=== PATIENT | male | born 1945 | race Caucasian/White ===

== ENCOUNTER 2019-03-30 10:55 | Observation (INO) | payer MEDICARE, OTHER, SELFPAY ==
[2019-03-30] VITALS (8 sets, daily range): BP systolic 120–162; BP diastolic 68–92; PULSE 67–82; RESP 16–18; TEMP 36.5–36.7; O2SAT 94–98; BMI 29.0
--- NOTE | 2019-03-30 11:10 | ED_ITS ---
Entered by Toya Brito, acting as scribe for Abdullahi Albright MD Mar 30, 2019 10:55 HPI - Neuro Symptoms/Deficit General: Chief Complaint: Neuro Symptoms/Deficit Stated Complaint: possible stroke Time Seen by Provider: 03/30/19 11:09 Source: patient Mode of arrival: wheelchair Limitations: physical limitation (L leg weakness) History of Present Illness: HPI Narrative: 73 yo male presents to ED with complaints of L leg weakness. He said he woke at 0530 this morning and his L leg would not work very well. He woke again at 0700 was worse. He said coughed all night long. He denies unusual back pain, stating he has chronic back pain. He can not raise his leg with his leg being straight but can with his knee bent. He has no sensation deficit. He has difficulty walking. Onset (ago): hour(s) (6) Time: 05:30 Timing confirmed by: other (patient) Location: left leg History of same: No Severity: severe Quality: weak Relieving factors: none Exacerbating factors: none Context: sudden onset On Anticoagulants: No Associated symptoms: Reports no associated symptoms; Deny chest pain, headache(s), nausea or vomiting Treatments Prior to Arrival: none Review of Systems Const: Denies: fever or chills Eyes: Denies: change in vision ENMT: Denies: throat pain or mouth pain Card: Denies: chest pain Resp: Denies: shortness of breath GI: Denies: abdominal pain, nausea, vomiting or diarrhea Musc: Denies: back pain or joint pain Skin/Breast: Denies: rash Neuro: Denies: headache or behavioral changes Psych: Denies: depression Endo: Denies: excessive urination Timbo/Lymph: Denies: easy bruising All/Imm: Denies: hives PFSH ED PFSH: Statuses (acute, chronic, etc) shown below reflect problem list status as previously entered and may not be historically accurate Social History Smoking and tobacco status: former smoker Physical Exam Const: COMMON NORMALS: no apparent distress and healthy appearing HENMT: COMMON NORMALS: normocephalic and external nose normal HEAD & SCALP: normocephalic NOSE: external nose normal and no nasal discharge (nasal dischage) Eye: COMMON NORMALS: PERRL PUPIL: Yes PERRL Neck/C-Spine: COMMON NORMALS: full ROM and no lymphadenopathy Chest: COMMONS NORMALS: inspection of chest normal Resp: COMMON NORMALS: normal respiratory effort and clear to auscultation bilaterally AUSCULTATION: clear to auscultation bilaterally Cardio: COMMON NORMALS: regular rate and regular rhythm RATE: regular rate RHYTHM: regular rhythm GI: COMMON NORMALS: soft to palpation PALPATION: Yes soft Extremity: COMMON NORMALS: normal to inspection, full ROM and normal capillary refill Psych: COMMON NORMALS: mental status grossly normal and cooperative Skin: COMMON NORMALS: no rashes or lesions noted GENERAL SKIN EXAM: no ra shes or lesions noted Course Vital Signs: Vital signs: Vital Signs Temperature 97.7 F 03/30/19 14:38 Pulse Rate 71 03/30/19 14:40 Respiratory Rate 18 03/30/19 14:40 Blood Pressure 120/68 03/30/19 14:40 Pulse Oximetry 98 03/30/19 14:40 MDM - Neuro Symptoms/Deficit MDM Narrative: Medical decision making narrative: Patient presents with left leg weakness. His weakness is resolving here and he is able to move and ambulate on that leg but does have partial weakness. CT scan shows no acute findings. He has no signs of epidural abscess or mass. I spoke to hospitalist and will admit to further observe. Patient has no back pain or urinary incontinence. Lab Data: Labs: Lab Results 03/30/19 03/30/19 03/30/19 Range/Units 11:15 11:15 11:15 WBC 4.1 (4.0-10.0) 10^3/ uL RBC 5.16 (4.1-5.3) 10^6/u L Hgb 15.0 (11.7-16.6) g/dL Hct 45.0 (42.0-52.0) % MCV 87.2 (80-94) fL MCH 29.1 (28.0-34.0) pg MCHC 33.3 (30.0-36.0) g/dL RDW 13.4 (12.1-15.1) % Plt Count 192 (130-400) 10^3/c mm MPV 10.1 (7.4-10.4) fL Neut % (Auto) 75.4 % Lymph % (Auto) 11.6 % [place] % (Auto) 10.8 % Eos % (Auto) 1.5 % Baso % (Auto) 0.5 % Neut # (Auto) 3.1 (1.8-7.7) 10^3/u L Lymph # (Auto) 0.5 L (0.8-4.8) 10^3/u L [place] # (Auto) 0.4 (0.2-0.9) 10^3/u L Eos # (Auto) 0.1 (0.0-0.8) 10^3/u L Baso # (Auto) 0.0 (0.0-0.1) 10^3/u L Nucleated RBC % (a uto) 0 % Nucleated RBCs # 0.0 /100WBC ESR 4 (0-10) mm/hr Sodium 139 (136-145) mmol/L Potassium 3.9 (3.5-5.1) mmol/L Chloride 101 (98-107) mmol/L Carbon Dioxide 30 H (22-29) mmol/L Anion Gap 11.9 (5-19) BUN 10 (8-23) mg/dL Creatinine 1.1 (0.7-1.2) mg/dL Glucose 113 H (74-106) mg/dL Calcium 9.8 (8.5-10.5) mg/dL Total Bilirubin 0.4 (0.15-1.2) mg/dL AST 16 (0-40) U/L ALT 13 (0-41) U/L Alkaline Phosphata se 86 (40-130) IU/L C-Reactive Protein 2.9 (0.0-4.9) mg/L Total Protein 7.0 (6.6-8.7) g/dL Albumin 4.6 (3.5-5.2) g/dL Globulin 2.4 (1.3-4.6) g/dL Imaging Data^: CT Head: Radiologist's impression: [address] [address] [address] Scan Report Signed Patient: Nathan Chaparro Unit #: [id number] : 1945 Age/Sex: 73 / M ADM Date: 03/30/19 Loc: ER Room/Bed: Attending Dr: Ordering Provider/Ordering MD: Abdullahi Albright MD Date of Service: 03/30/19 Procedure(s): CT head wo con* [id number] Accession Number(s): [id number] Report Number: [id number] PROCEDURE INFORMATION: Exam: CT Head Without Contrast Exam date and time: 03/30/2019 11:18 AM Age: 73 years old Clinical indication: Weakness, extremity; Patient HX: Sudden onset of left leg weakness this am, HX of bladder CA, HX of lumbar surgery TECHNIQUE: Imaging protocol: Computed tomography of the head without contrast. Total DLP: 793.63 mGy-cm Radiation optimization: All CT scans at this facility use at least one of these dose optimization techniques: automated exposure control; mA and/or kV adjustment per patient size (includes targeted exams where dose is matched to clinical indication); or iterative reconstruction. COMPARISON: MRI IAC'S w/wo* [id number] 08/06/2018 1:08 PM FINDINGS: Brain: Mild cerebral atrophy and ischemic leukoencephalopathy. Ventricles: Normal. No ventriculomegaly. Bones/joints: Unremarkable. No acute fracture. Sinuses: Visualized sinuses are unremarkable. No fluid levels. Mastoid air cells: Visualized mastoid air cells are well aerated. Soft tissues: Unremarkable. Vasculature: Severe calcified intracranial atherosclerotic vessel disease. CT/CT head wo con* [id number] IMPRESSION: No acute intracranial findings. Radiation Dose CTDIVOL = (mGy): DLP = 793.63 (mGy-cm) Dictated By: Gurinder Valladares MD Signed By: Gurinder Valladares MD Signed Date/Time: 03/30/19 1200 DD/ Other CT: Radiologist's impression: [address] [address] [address] Scan Report Signed Patient: Nathan Chaparro Unit #: [id number] : 1945 Age/Sex: 73 / M ADM Date: 03/30/19 Loc: ER Room/Bed: Attending Dr: Ordering Provider/Ordering MD: Abdullahi Albright MD Date of Service: 03/30/19 Procedure(s): CT thoracic spin wo con* [id number] Accession Number(s): [id number] Report Number: [id number] PROCEDURE INFORMATION: Exam: CT Thoracic Spine Without Contrast Exam date and time: 03/30/2019 11:18 AM Age: 73 years old Clinical indication: Patient HX: Sunnen onset of left leg weakness this am, HX of bladder CA, HX of lumbar surgery TECHNIQUE: Imaging protocol: Computed tomography images of the thoracic spine without contrast. Total DLP: 1815.96 mGy-cm Radiation optimization: All CT scans at this facility use at least one of these dose optimization techniques: automated exposure control; mA and/or kV adjustment per patient size (includes targeted exams where dose is matched to clinical indication); or iterative reconstruction. COMPARISON: No relevant prior studies available. FINDINGS: Vertebrae: Upper thoracic mild dextroscoliosis. Mild thoracic spondylosis. Discs/Spinal canal/Neural foramina: No spinal canal stenosis. Soft tissues: Unremarkable. Vasculature: Calcification of the thoracic aorta and/or great vessels consistent with atherosclerotic vessel disease. Lungs: Moderate centrilobular emphysema. 1.1 x 0.3 x 0.5 cm pleural based scar in the left upper lobe adjacent to the major fissure. No followup needed. CT/CT thoracic spin wo con* [id number] IMPRESSION: 1. Moderate centrilobular emphysema. 2. 1.1 x 0.3 x 0.5 cm pleural based scar in the left upper lobe adjacent to the major fissure. No followup needed. Radiation Dose CTDIVOL = (mGy): DLP = 1815.96 (mGy-cm) Dictated By: Gurinder Valladares MD Signed By: Gurinder Valladares MD Signed Date/Time: 03/30/19 1202 DD/ [address] [address] [address] Scan Report Signed Patient: Nathan Chaparro Unit #: [id number] : 1945 Age/Sex: 73 / M ADM Date: 03/30/19 Loc: ER Room/Bed: Attending Dr: Ordering Provider/Ordering MD: Abdullahi Albright MD Date of Service: 03/30/19 Procedure(s): CT lumbar spine wo con* [id number] Accession Number(s): [id number] Report Number: [id number] PROCEDURE INFORMATION: Exam: CT Lumbar Spine Without Contrast Exam date and time: 03/30/2019 11:18 AM Age: 73 years old Clinical indication: Prior surgery; Surgery type: Lumbar; Patient HX: Sudden onset of left leg weakness this a. M. TECHNIQUE: Imaging protocol: Computed tomography images of the lumbar spine without contrast. Total DLP: 2148.13 mGy-cm Radiation optimization: All CT scans at this facility use at least one of these dose optimization techniques: automated exposure control; mA and/or kV adjustment per patient size (includes targeted exams where dose is matched to clinical indication); or iterative reconstruction. COMPARISON: MRI Lumbar Spine w/o [id number] 01/03/2017 9:45 AM FINDINGS: Tubes, catheters and devices: Interval anterior L5-S1 surgery with radiopaque disc spacer and metallic artifact. Vertebrae: Moderate lumbar spondylosis. Discs/Spinal canal/Neural foramina: Borderline L4-L5 central spinal stenosis with borderline bilateral lateral recess stenosis. Mild right L4-L5 central spinal stenosis with borderline left L3-L4 and L4-L5 foraminal stenosis. Borderline L3-L4 central spinal stenosis with posterior disc bulge. Vasculature: Calcification of the abdominal aorta and/or iliac arteries consistent with atherosclerotic vessel disease. Soft tissues: Unremarkable. CT/CT lumbar spine wo con* [id number] IMPRESSION: 1. Interval anterior L5-S1 surgery with radiopaque disc spacer and metallic artifact. 2. Borderline L4-L5 central spinal stenosis with borderline bilateral lateral recess stenosis. 3. Mild right L4-L5 central spinal stenosis with borderline left L3-L4 and L4-L5 foraminal stenosis. 4. Borderline L3-L4 central spinal stenosis with posterior disc bulge. Radiation Dose CTDIVOL = (mGy): DLP = 2148.13 (mGy-cm) Dictated By: Gurinder Valladares MD Signed By: Gurinder Valladares MD Signed Date/Time: 03/30/19 1204 DD/ Discharge Plan Discharge Patient Disposition: Admitted As Inpatient Admit Provider: Andrew Boswell Clinical Impression: Left leg weakness Condition: Stable Interventions: ED Discharge Assessment Last Done: 03/30/19 14:40 Discharge Date/Time: 03/30/19 14:40 Coding Level of Care Code ED Satellite Technician for Chg Fwd Exam Problem Focused The documentation recorded by the scribAlisha pemberton Valerie R, accurately reflects the service I personally performed and the decisions made by me, Abdullahi Albright MD Mar 30, 2019 10:55
--- NOTE | 2019-03-30 11:13 | PC.NURSE ---
Pt states he woke up aroung 530 this morning and had left leg weakness. Thought his leg just went to sleep so he went back to sleep. Woke again at 0700 and noted the same symptoms, so decided to get checked out.
--- NOTE | 2019-03-30 11:16 | CTR_ITS ---
PROCEDURE INFORMATION: Exam: CT Thoracic Spine Without Contrast Exam date and time: 03/30/2019 11:18 AM Age: 73 years old Clinical indication: Patient HX: Sunnen onset of left leg weakness this am, HX of bladder CA, HX of lumbar surgery TECHNIQUE: Imaging protocol: Computed tomography images of the thoracic spine without contrast. Total DLP: 1815.96 mGy-cm Radiation optimization: All CT scans at this facility use at least one of these dose optimization techniques: automated exposure control; mA and/or kV adjustment per patient size (includes targeted exams where dose is matched to clinical indication); or iterative reconstruction. COMPARISON: No relevant prior studies available. FINDINGS: Vertebrae: Upper thoracic mild dextroscoliosis. Mild thoracic spondylosis. Discs/Spinal canal/Neural foramina: No spinal canal stenosis. Soft tissues: Unremarkable. Vasculature: Calcification of the thoracic aorta and/or great vessels consistent with atherosclerotic vessel disease. Lungs: Moderate centrilobular emphysema. 1.1 x 0.3 x 0.5 cm pleural based scar in the left upper lobe adjacent to the major fissure. No followup needed. CT/CT thoracic spin wo con* [id number] IMPRESSION: 1. Moderate centrilobular emphysema. 2. 1.1 x 0.3 x 0.5 cm pleural based scar in the left upper lobe adjacent to the major fissure. No followup needed. Radiation Dose CTDIVOL = (mGy): DLP = 1815.96 (mGy-cm)
--- NOTE | 2019-03-30 11:16 | CTR_ITS ---
PROCEDURE INFORMATION: Exam: CT Lumbar Spine Without Contrast Exam date and time: 03/30/2019 11:18 AM Age: 73 years old Clinical indication: Prior surgery; Surgery type: Lumbar; Patient HX: Sudden onset of left leg weakness this a. M. TECHNIQUE: Imaging protocol: Computed tomography images of the lumbar spine without contrast. Total DLP: 2148.13 mGy-cm Radiation optimization: All CT scans at this facility use at least one of these dose optimization techniques: automated exposure control; mA and/or kV adjustment per patient size (includes targeted exams where dose is matched to clinical indication); or iterative reconstruction. COMPARISON: MRI Lumbar Spine w/o [id number] 01/03/2017 9:45 AM FINDINGS: Tubes, catheters and devices: Interval anterior L5-S1 surgery with radiopaque disc spacer and metallic artifact. Vertebrae: Moderate lumbar spondylosis. Discs/Spinal canal/Neural foramina: Borderline L4-L5 central spinal stenosis with borderline bilateral lateral recess stenosis. Mild right L4-L5 central spinal stenosis with borderline left L3-L4 and L4-L5 foraminal stenosis. Borderline L3-L4 central spinal stenosis with posterior disc bulge. Vasculature: Calcification of the abdominal aorta and/or iliac arteries consistent with atherosclerotic vessel disease. Soft tissues: Unremarkable. CT/CT lumbar spine wo con* [id number] IMPRESSION: 1. Interval anterior L5-S1 surgery with radiopaque disc spacer and metallic artifact. 2. Borderline L4-L5 central spinal stenosis with borderline bilateral lateral recess stenosis. 3. Mild right L4-L5 central spinal stenosis with borderline left L3-L4 and L4-L5 foraminal stenosis. 4. Borderline L3-L4 central spinal stenosis with posterior disc bulge. Radiation Dose CTDIVOL = (mGy): DLP = 2148.13 (mGy-cm)
--- NOTE | 2019-03-30 11:16 | CTR_ITS ---
PROCEDURE INFORMATION: Exam: CT Head Without Contrast Exam date and time: 03/30/2019 11:18 AM Age: 73 years old Clinical indication: Weakness, extremity; Patient HX: Sudden onset of left leg weakness this am, HX of bladder CA, HX of lumbar surgery TECHNIQUE: Imaging protocol: Computed tomography of the head without contrast. Total DLP: 793.63 mGy-cm Radiation optimization: All CT scans at this facility use at least one of these dose optimization techniques: automated exposure control; mA and/or kV adjustment per patient size (includes targeted exams where dose is matched to clinical indication); or iterative reconstruction. COMPARISON: MRI IAC'S w/wo* [id number] 08/06/2018 1:08 PM FINDINGS: Brain: Mild cerebral atrophy and ischemic leukoencephalopathy. Ventricles: Normal. No ventriculomegaly. Bones/joints: Unremarkable. No acute fracture. Sinuses: Visualized sinuses are unremarkable. No fluid levels. Mastoid air cells: Visualized mastoid air cells are well aerated. Soft tissues: Unremarkable. Vasculature: Severe calcified intracranial atherosclerotic vessel disease. CT/CT head wo con* [id number] IMPRESSION: No acute intracranial findings. Radiation Dose CTDIVOL = (mGy): DLP = 793.63 (mGy-cm)
[2019-03-30 11:26] LABS: Basophils % 0.5 %; Eosinophils # 0.1 10^3/uL (0.0-0.8); Eosinophils % 1.5 %; Lymphocytes # 0.5 10^3/uL (0.8-4.8); Lymphocytes % 11.6 %; Mean Corpuscular HGB Conc 33.3 g/dL (30.0-36.0); Mean Corpuscular Hemoglobin 29.1 pg (28.0-34.0); Mean Corpuscular Volume 87.2 fL (80-94); Mean Platelet Volume 10.1 fL (7.4-10.4); Monocytes # 0.4 10^3/uL (0.2-0.9); Monocytes % 10.8 %; Neutrophils # 3.1 10^3/uL (1.8-7.7); Neutrophils % 75.4 %; Nucleated Red Blood Cells % 0 %; Platelet Count 192 10^3/cmm (130-400); Red Blood Count 5.16 10^6/uL (4.1-5.3); Red Cell Distribution Width 13.4 % (12.1-15.1); White Blood Count 4.1 10^3/uL (4.0-10.0)
[2019-03-30 11:39] LABS: Alanine Aminotransferase 13 U/L (0-41); Albumin Level 4.6 g/dL (3.5-5.2); Alkaline Phosphatase 86 IU/L (40-130); Anion Gap 11.9 (5-19); Aspartate Amino Transferase 16 U/L (0-40); Blood Urea Nitrogen 10 mg/dL (8-23); C Reactive Protein 2.9 mg/L (0.0-4.9); Calcium 9.8 mg/dL (8.5-10.5); Carbon Dioxide 30 mmol/L (22-29); Chloride 101 mmol/L (98-107); Creatinine Clr Calc Pharmacy 66.1229; Globulin 2.4 g/dL (1.3-4.6); Glucose 113 mg/dL (74-106); Potassium 3.9 mmol/L (3.5-5.1); Sodium 139 mmol/L (136-145); Total Bilirubin 0.4 mg/dL (0.15-1.2)
[2019-03-30 12:27] LABS: Erythrocyte Sedimentation Rate 4 mm/hr (0-10)
[2019-03-30] MEDS: dexamethasone 10 mg/mL INJ IVP (12:27)
--- NOTE | 2019-03-30 15:13 | PM.HP ---
Providers/Chief Complaint Admitting Physician: Andrew Boswell Primary Care Provider: Bethel Rodriguez DO Chief Complaint: LEFT LEG WEAKNESS History of Present Illness Nathan Chaparro is a 73 year old male with history of degenerative disc disease, with history of discectomy, fusion of lumbar spine 2 years ago done in [place] by Dr. Bush, urinary bladder cancer, other history including chronic/recurrent ear infections, seasonal allergies was in his usual state of health apart from nonproductive cough overnight, this morning productive of small amount of sputum, woke up in the morning and noticed difficulty getting up and walking due to left leg weakness of sudden onset. He denies any recent fall, lifting heavy objects, or worsening of his usual lower back pain. He denies saddle anesthesia, bowel or bladder incontinence. Denies any recent fever or rash. He denies any other symptoms that may suggest focal neurological deficit, with out any loss of sensation, weakness in other areas, facial droop, difficulty speaking, or vision changes. CT of the head was obtained in ER and was without acute intracranial findings. CT thoracic and lumbar spine were obtained as well. Moderate centrilobular emphysema was seen on CT thoracic spine. 1.1 x 0.3 x 0.5 cm pleural-based scar in the left upper lobe was noted incidentally. Lumbar spine CT with L5-S1 surgery with disc spacer noted, borderline L4-5 central spinal stenosis with borderline bilateral lateral recess stenosis. Mild right L4-5 central spinal stenosis with borderline left L3-4 and L4-5 foraminal stenosis. Borderline L3-4 central spinal stenosis with posterior disc bulge. He received a dose of 10 mg Decadron. He reports that his symptoms have been improving, with left lower extremity regaining strength, with him being able to now elevated off the bed whereas he previously could not. He reports going golfing about a week ago last time. He says that he goes pretty often. Review of Systems Const: Denies: fever, chills, body aches or malaise Eyes: Denies: change in vision or eye redness ENMT: Denies: throat pain, oral sores/lesions or ear pain Card: Denies: chest pain, edema, pre-syncope or shortness of breath on exertion Resp: Reports: non-productive cough (Bothersome nonproductive cough overnight.); Denies: shortness of breath, productive cough, change in phlegm color or coughing up blood GI: Denies: abdominal pain, nausea, vomiting, diarrhea, constipation, blood in stool or black tarry stool : Denies: flank pain, difficulty urinating, urinary frequency or blood in urine Musc: Denies: back pain, joint swelling or redness Skin/Breast: Denies: rash, sores or new lesion Neuro: Reports: weakness in extremities (Left lower extremity), difficulty walking and other (Reports sometimes getting burning pain in his right sole while wearing golfing shoes.); Denies: headache, numbness in extremities, dizziness, confusion or seizure-like activity Endo: Denies: excessive urination or excessive thirst Timbo/Lymph: Denies: easy bleeding or purpura All/Imm: Denies: hives, throat swelling or tongue swelling Medications/Allergies Home Medications Medication Instructions Recorded Confirmed Last Taken Type cetirizine 10 mg PO DAILY 03/30/19 03/30/19 03/30/19 History hydrocodone-acetaminophen 1 tab PO Q6H PRN 03/30/19 03/30/19 03/30/19 History meloxicam 7.5 mg PO DAILY 03/30/19 03/30/19 03/30/19 History Allergies Allergy/AdvReac Type Severity Reaction Status Date / Time Penicillins Allergy ADR-Faintin Verified 03/30/19 11:10 g PFSH Acute PFSH: Statuses (acute, chronic, etc) shown below reflect problem list status as previously entered and may not be historically accurate Medical History (Updated 03/30/19 @ 16:01 by Andrew Boswell MD) Degenerative disc disease (Acute) Recurrent otitis media (Acute) Seasonal allergies (Acute) Urinary bladder cancer (Acute) Surgical History Hx of hernia repair (Acute) Hx of knee surgery (Acute) Hx of lumbosacral spine surgery (Acute) Family History Father Colon cancer Mother Hypertension Social History (Updated 03/30/19 @ 15:54 by Andrew Boswell MD) Smoking and tobacco status: former smoker Quit status (tobacco): has quit using tobacco Year quit tobacco: 30 years ago Alcohol intake: current Alcohol intake frequency: holidays/special occasions only Substance/Drug Use: never Lives independently: Yes Household members: spouse Marital status: Vitals/I&O/Wt Last Vital Signs Temp 97.7 F 03/30/19 14:38 Pulse 71 03/30/19 14:40 Resp 18 03/30/19 14:40 BP 120/68 03/30/19 14:40 Pulse Ox 98 03/30/19 14:40 Weight last 48 hrs Weight 89.358 kg Physical Exam Const: COMMON NORMALS: no apparent distress and oriented x3 HENMT: COMMON NORMALS: oropharynx normal Neck/C-Spine: COMMON NORMALS: no JVD Resp: COMMON NORMALS: normal respiratory effort and clear to auscultation bilaterally AUSCULTATION: clear to auscultation bilaterally Cardio: COMMON NORMALS: no JVD, regular rhythm, S1 normal heart sound, S2 normal heart sound and no murmurs RHYTHM: regular rhythm HEART SOUNDS: S1 normal and S2 normal GI: COMMON NORMALS: normal to inspection, nondistended, normoactive bowel sounds, soft to palpation and non-tender PALPATION: Yes soft Extremity: COMMON NORMALS: no joint enlargement and no pedal edema NARRATIVE EXTREMITY EXAM: Sensation intact, weakness of left lower extremity, although now is able to lift it off the bed, which says he cannot do earlier. Neuro: COMMON NORMALS: oriented x3 and no sensory deficits noted COORDINATION/BALANCE: hssurx-yw-zaxy test normal SPEECH: speech normal OTHER: Visual vargas full to confrontation. No dysarthria, aphasia. No facial droop. No issues with tracking. Coordination. No pronator drift upper or right lower extremity. Left lower extremity weak, although power appears to be improving to 3/5. No sensory deficits. No neglect. Skin: COMMON NORMALS: no rashes or lesions noted GENERAL SKIN EXAM: no rashes or lesions noted Data : 03/30/19 11:15 03/30/19 11:15 A&P Assessment and plan (1) Left leg weakness: Unclear timing of onset of left lower extremity weakness. Etiology at this time difficult to determine. Does have some degenerative changes noted on CT lumbar spine, most of which are borderline, without signs of cord compression clinically. His symptoms are improving. He was started on Solu-Medrol in ER. No other focal abnormalities to suggest CVA. CT head was unremarkable. At this time CVA likely what is thought to be low. We will start him on aspirin, check lipid profile, A1c. Monitor blood pressures. Monitor on telemetry. Will order an MRI lumbar spine. Discussed with patient and his that we do not have a neurosurgeon at this time. For now we will continue steroid. Discussed his condition and plan with his neurologist Dr. Bush in [facility] who agrees with observation, assessment by MRI, steroids for now, with additional plan depending on his condition with either outpatient follow-up, or transfer in case of worsening. He is afebrile, without leukocytosis, tachycardia or other signs of acute infection, and suspicion for infection at this time is low. ESR and CRP are normal. With asymmetric involvement, no signs of autonomic dysfunction, at this time suspicion for AIDP is low. Will monitor for any changes in symptoms which may indicate need for additional assessment which would necessitate transfer. We will request assessment by PT. Status: Acute Code(s): R29.898 - Other symptoms and signs involving the musculoskeletal system (2) Nonproductive cough: Will assess with chest x-ray. Rapid flu. Suspected acute bronchitis. Emphysema noted incidentally on CT thoracic spine. Will add albuterol as needed. He denies history of COPD. May benefit from PFT at some point. Status: Acute Code(s): R05 - Cough Attestations Medical Necessity Statement*: Place in observation. Coding Level of Care Code Acute Marketing Strategy Manager for g Fwd Diagnoses Left leg weakness R29.898 Nonproductive cough R05
--- NOTE | 2019-03-30 15:32 | MRR_ITS ---
PROCEDURE INFORMATION: Exam: MR Lumbar Spine Without Contrast. Exam date and time: 03/30/2019 10:00 AM Age: 73 years old Clinical indication: Pain; Other: Lle weakness; Prior surgery; Surgery date: 6+ months; Surgery type: Back; Patient HX: Lt leg weakness since 6 am yest/ HX bladder CA; Additional info: New lle weakness TECHNIQUE: Imaging protocol: Multiplanar magnetic resonance images of the lumbar spine without intravenous contrast. COMPARISON: MRI Lumbar Spine w/o [id number] 01/03/2017 9:45 AM FINDINGS: Vertebrae: Vertebral body heights normal. L3 and L4 vertebral hemangiomas. Vertebral body marrow signal is otherwise unremarkable. No evidence of marrow infiltrative process osseous metastatic disease. Spinal cord: Conus terminates at T12-L1 and appears normal in signal intensity without intrinsic or extrinsic lesion. L1-L2: There is no significant disc bulge. There is no significant spinal stenosis. There is no significant neural foraminal narrowing. No interval change. L2-L3: There is disc desiccation at L2-L3 and L5 S1. There is generalized disc bulge, mild thickening of ligamentum flavum, and facet degeneration. There is no significant spinal stenosis. There is mild bilateral neural foraminal narrowing. No interval change. L3-L4: There is generalized disc bulge. There is mild thickening of ligamentum flavum and facet degeneration. There is no significant spinal stenosis. There is mild and unchanged right and increased and moderate left subarticular recesses narrowing. There is stable mild right and increased and moderate to severe left neural foraminal narrowing. The increased neural foraminal narrowing is due to increased bulging/protrusion into the neural foramen. L4-L5: There is generalized disc bulge. There is thickening of ligamentum flavum and facet degeneration. There is no significant spinal stenosis. There is mild bilateral subarticular recess narrowing. There is mild to moderate right slightly greater than left neural foraminal narrowing. No significant interval change. L5-S1: Again seen is mild grade 1 anterolisthesis. There is new interbody and anterior plates or effusion. There is generalized disc bulge. There is no significant facet degeneration. There is no significant spinal stenosis. There is no significant neural foraminal narrowing. Bladder: There is nonspecific mild bladder wall thickening. Soft tissues: Unremarkable. MR/MR lumbar spine wo con* [id number] IMPRESSION: 1. Degenerative changes are described above. L3-L4 shows increased and moderate to severe left neural foraminal narrowing due to increasing rim of disc bulging/protrusion. Other findings as described are stable. 2. New interbody and anterior plates fusion L5-S1. 3. No evidence of osseous metastatic disease.
--- NOTE | 2019-03-30 16:01 | XRR_ITS ---
PROCEDURE INFORMATION: Exam: XR Chest, 1 View Exam date and time: 03/30/2019 4:02 PM Age: 73 years old Clinical indication: Patient HX: Cough, HX of bladder CA, ex smoker TECHNIQUE: Imaging protocol: XR of the chest Views: 1 view. COMPARISON: [facility] Chest 2 views 07/06/2016 2:16 PM FINDINGS: Lungs: Coarsened interstitial markings consistent with emphysema. No consolidation. Pleural space: Unremarkable. No evidence of pleural effusion or pneumothorax. Heart/Mediastinum: Unremarkable. No cardiomegaly. Bones/joints: Unremarkable. XR/XR chest 1V portable [id number] IMPRESSION: No acute findings.
[2019-03-30] MEDS: aspirin 81 mg EC Tablet 162 MG PO (16:15)
[2019-03-30] MEDS: HYDROcodone-acetaminophen 10-325 mg Tablet 1 TAB PO (16:19)
[2019-03-30 16:48] LABS: Chol HDL Ratio 4.06 mg/dL (1.0-5.00); Cholesterol 219 mg/dL (0-200); HDL Cholesterol 54 mg/dL (60-100); LDL Cholesterol Calculated 137 mg/dL (50-129); LDL HDL Ratio 2.54 RATIO (0.00-3.22); Triglycerides 142 mg/dL (0-150)
[2019-03-30 17:15] LABS: Estmated Average Glucose 105; Hemoglobin A1C 5.3 % (4.0-6.0)
[2019-03-30 17:31] LABS: Influenza A by IFA Negative (Negative); Influenza B by IFA Negative (Negative)
[2019-03-30] MEDS: heparin 5,000 unit/mL INJ 1 mL 5000 UNIT SUBCUT (19:33)
[2019-03-31] MEDS: heparin 5,000 unit/mL INJ 1 mL 5000 UNIT SUBCUT ×2 (02:16→12:02)
[2019-03-31 05:55] VITALS: BP 124/72; PULSE 77; RESP 18; TEMP 36.9; O2SAT 95
[2019-03-31 07:45] VITALS: PULSE 62; RESP 16; O2SAT 95
[2019-03-31 08:00] VITALS: BP 128/83; PULSE 82; RESP 20; TEMP 37; O2SAT 96
[2019-03-31] MEDS: meloxicam 7.5 mg tablet PO (08:30)
[2019-03-31] MEDS: cetirizine 10 mg Tablet PO (08:30)
[2019-03-31] MEDS: aspirin 81 mg EC Tablet 162 MG PO (08:30)
[2019-03-31] MEDS: HYDROcodone-acetaminophen 10-325 mg Tablet 1 TAB PO (08:30)
[2019-03-31 11:54] VITALS: BP 128/88; PULSE 66; RESP 20; TEMP 36.9; O2SAT 94
--- NOTE | 2019-03-31 12:07 | PC.CHAP ---
Pastoral Care Encounter/Spiritual Assessment Type of Contact [] Declined adjuster piano action visit [] Patient/Family/Request visit [] Outpatient visit [] Follow-up visit [] Physician referral [] Code/Alert [] Routine visit [] Staff referral [] Actively dying [] Patient sleeping [] Family support [] [] Out of room [] Palliative care [] [] Receiving care in room [] Pre-surgical visit [] Trauma [] Long length of stay [] ICU visit [] Other: Relational/Emotional Strength [x] Patient feels connected with others/family/visitors/staff [] Distress [] Loneliness/isolation [] Abandonment Spirituality of Patient [x] Person of Jackie [] Attends Uatsdin of their Jackie [x] Believes in Prayer [] Reads Bible or Yazdanism materials [] There are Spiritual issues to be addressed School Commissioner Interventions [x] Prayer [x] Active listening [x] Non-anxious presence [x] Spiritual/emotional support [] Crisis/trauma care [] Spiritual counseling [] Bereavement support [] Provided bereavement packet [] Provided Bible/devotional materials [] Provided toy/stuffed animal, coloring book to patient or family member [x] Completed spiritual assessment [] Provided Communion [] Anointing/[place] [] Salvation [] Other: Impact on Illness or Injury [] Angry [] Fearful [] Anxious [] Often cries [] Exhaustion [] Unable to work [] Unable to attend scientology [] Unable to walk/stand [] Unable to read [] Unable to drive [] Unable to eat/drink [] Unable to sleep [] Unable to be with family [] Other: Summary School Commissioner prayed with Patient and family member. Time spent with patient 5 minutes.
[2019-03-31 16:11] VITALS: BP 128/88; PULSE 66; RESP 20; TEMP 36.9; O2SAT 94
--- NOTE | 2019-03-31 16:30 | PM.DCS ---
Discharge Providers Date of Admission: 03/30/19 14:06 Date of Discharge: 03/31/19 Attending Provider at Admission: Andrew Boswell Attending Provider at Discharge: Andrew Boswell Primary Care Provider: Bethel Rodriguez DO Diagnoses at Discharge Discharge Diagnosis (1) Left leg weakness: Status: Acute (2) Nonproductive cough: Status: Acute Reason for Visit Reason for Visit: Reason For Visit: LEFT LEG WEAKNESS Hospital Course Hospital Course: Mr. Chaparro is a pleasant 73-year-old gentleman with history of degenerative disc disease, status post anterior fusion of L5-S1 2 years ago, as well as urinary bladder cancer previously in remission, currently under observation by his urologist with plan for reassessment in June due to suspicious lesion, chronic/recurrent ear infections following with ENT was placed in observation after waking up in the morning on 03/30 with difficulty walking due to weakness of left lower extremity. He says prior to that had been in his regular state of health, golfing fairly regularly, most recently the week prior. He did report being bothered by significant cough for most of the night before presentation. There were no other focal neurologic abnormalities. He was assessed with CT of the head which was unremarkable. CT thoracic lumbar spine were assessed, with finding of as well. Lumbar spine CT with L5-S1 surgery with disc spacer noted, borderline L4-5 central spinal stenosis with borderline bilateral lateral recess stenosis. Mild right L4-5 central spinal stenosis with borderline left L3-4 and L4-5 foraminal stenosis. Borderline L3-4 central spinal stenosis with posterior disc bulge. Moderate centrilobular emphysema was seen on CT thoracic spine. 1.1 x 0.3 x 0.5 cm pleural-based scar in the left upper lobe was noted incidentally. He reported chronic lower back pain. In ER he received 10 mg of Decadron. His symptoms were improving, and he was regaining strength, able to lift his leg up off the bed which she could not do previously. Suspicion for CVA was low. He is otherwise in good health, although was assessed for risk factors, and discussed with him recommendation for moderate to high intensity statin which is started. His blood pressures were at goal. A1c is normal. Due to previous history of degenerative disc changes, CT findings, lower extremity weakness considered secondary to lumbosacral radiculopathy with compression of large fibers. He did not have symptoms of saddle anesthesia, bowel or bladder control dysfunction, or other symptoms of acute cord compression. He was observed overnight, continued on prednisone, with continued improvement in his symptoms. His presentation was discussed with his neurosurgeon who will see him in office. Per recommendation MRI lumbar spine was performed with finding of degenerative changes including L3-4 increased and moderate to severe left neuroforaminal narrowing due to increased rim of disc bulging/protrusion. He will complete a prednisone taper. He should follow-up with his neurosurgeon, and until then discussed with him to hold off on further golf sessions to which he verbalized understanding. Given his symptoms are most likely related to his degenerative lower back disease no further evaluation for CVA has been ordered, however, he is continued on empiric aspirin. Please consider additional investigation and referral as needed depending on his further clinical progress. Continue to optimize risk factors of cardiovascular disease. Physical Exam Const: COMMON NORMALS: no apparent distress and oriented x3 HENMT: COMMON NORMALS: oropharynx normal Neck/C-Spine: COMMON NORMALS: no JVD Resp: COMMON NORMALS: normal respiratory effort and clear to auscultation bilaterally AUSCULTATION: clear to auscultation bilaterally Cardio: COMMON NORMALS: no JVD, regular rhythm, S1 normal heart sound, S2 normal heart sound and no murmurs RHYTHM: regular rhythm HEART SOUNDS: S1 normal and S2 normal GI: COMMON NORMALS: normal to inspection, nondistended, normoactive bowel sounds, soft to palpation and non-tender PALPATION: Yes soft Extremity: COMMON NORMALS: no joint enlargement and no pedal edema NARRATIVE EXTREMITY EXAM: Sensation intact, weakness of left lower extremity, although with continuing improvement in strength, today ambulating better with a cane. Power 3+/5 left lower extremity. 5/5 right lower extremity. Neuro: COMMON NORMALS: oriented x3 and no sensory deficits noted COORDINATION/BALANCE: [id number] test normal SPEECH: speech normal COORDINATION: [id number] test normal OTHER: Visual vargas full to confrontation. No dysarthria, aphasia. No facial droop. No issues with tracking. Coordination. No pronator drift upper or right lower extremity. Left lower extremity weak, although power appears to be improving to 3+/5. No sensory deficits. No neglect. Skin: COMMON NORMALS: no rashes or lesions noted GENERAL SKIN EXAM: no rashes or lesions noted Discharge Data Data Completed and Pending: Completed Studies During Hospitalization Category Date Time Status CT head wo con* 7 [id number] Urgent Cat Scan 03/30/19 11:[address] lumbar spine w o con* [id number] Urgen t Cat Scan 03/30/19 11:[address] thoracic spin wo con* [id number] Urge nt Cat Scan 03/30/19 11:16 Completed XR chest 1V main ble [id number] Routine Exams 03/30/19 16:01 Completed MR lumbar spine w o con* [id number] Routi ne MRI 03/30/19 15:32 Completed Labs from last 24 hours 03/30/19 03/30/19 03/30/19 16:53 11:15 11:15 Estimat Average Gl ucose 105 Hemoglobin A1c 5.3 Triglycerides 142 Cholesterol 219 H LDL Cholesterol, C alc 137 H HDL Cholesterol 54 L LDL/HDL Ratio 2.54 Cholesterol/HDL Ra tonny 4.06 Influenza Type A A g Negative POC Influenza B Ag Negative Vitals: Last Vital Signs Temp 98.5 F 03/31/19 16:11 Pulse 66 03/31/19 16:11 Resp 20 H 03/31/19 16:11 BP 128/88 03/31/19 16:11 Pulse Ox 94 03/31/19 16:11 Discharge Plan Discharge Patient Disposition: Home, Self-Care Condition: Stable Prescriptions: New atorvastatin 40 mg Tablet 40 mg PO BEDTIME Qty: 30 RF: 0 prednisone 20 mg tablet 20 mg PO DAILY 12 Days Qty: 20 RF: 0 aspirin 81 mg tablet,delayed release (DR/EC) 81 mg PO DAILY Qty: 30 RF: 0 Continued cetirizine 10 mg Tablet 10 mg PO DAILY RF: 0 hydrocodone-acetaminophen 10-325 mg tablet 1 tab PO Q6H PRN (Reason: Pain) RF: 0 meloxicam 7.5 mg tablet 7.5 mg PO DAILY RF: 0 Discharge Orders: Discharge Order (Routine); Ordered 03/31/19 Ordered By: Andrew Boswell Referrals: Bethel Bush [Other] - 4-7 days (Acute leg weakness) Bethel Rodriguez DO [Primary Care Provider] - 4-7 days (Please call Nathaniel Sorto on Monday and make an appointment with Dr. Rodriguez and be seen in the next 4 to 7 days.) Discharge Diet: Low Cholesterol Discharge Activity: As per PT/OT instructions Patient Instructions: Prednisone (By mouth), Aspirin (By mouth), Atorvastatin (By mouth), Weakness (GEN), Degenerative Disc Disease (DC) Activity Restrictions/Additional Instructions: Maintain fall precautions. Avoid playing golf until you can be reassessed by your neurosurgeon. In case of worsening of weakness, appearance of any other symptoms including loss of bowel or bladder control, loss of sensation, weakness in other areas, difficulty speaking, changes in vision, or any other abnormalities seek medical attention without delay. Discharge Date/Time: 03/31/19 16:10 Discharge Attestations Time Spent in Discharge Care*: greater than 30 min Quality Metrics Clinical Quality Measures During this hospital stay, did patient experience: None Coding Level of Care Code Acute Sexual Assault Counselor for Chg Fwd Diagnoses Left leg weakness R29.898 Nonproductive cough R05
== END 2019-03-31 16:10 | disposition home or self-care (01) ==
LOC: ER 11:11 → MEDSURG 14:07
PROVIDERS: Admitting Provider Internal Medicine; Emergency Provider Emergency Medicine; Family Provider Internal Medicine; PCP Internal Medicine; Visit Provider Internal Medicine
DX: M62.81 Muscle weakness (generalized) (principal); R05 Cough; Z98.1 Arthrodesis status; Z85.51 Personal history of malignant neoplasm of bladder; Z80.0 Family history of malignant neoplasm of digestive organs; Z87.891 Personal history of nicotine dependence; Z79.891 Long term (current) use of opiate analgesic
CPT/HCPCS: 12345; 70450; 71045; 72128; 72131; 72148; 80053; 80061; 83036; 85025; 85651; 86140; 87804; 96372; 96374; 99282; 99285; G0378; J1100; J1644

== ENCOUNTER → 2019-07-04 11:20 | Outpatient (BNVA) | payer MEDICARE, OTHER, SELFPAY | PROVIDERS: Family Provider Internal Medicine; PCP Internal Medicine; Visit Provider Urology | DX: C67.9 Malignant neoplasm of bladder, unspecified (principal); C67.4 Malignant neoplasm of posterior wall of bladder | CPT/HCPCS: 81001 ==

== ENCOUNTER 2019-07-10 14:47 | Outpatient (CLI) | payer MEDICARE, OTHER, SELFPAY ==
--- NOTE | 2019-07-10 15:28 | MR_ITS ---
WS: [id number] MRI RIGHT SHOULDER HISTORY: INTERNAL DERANGEMENT OF RIGHT SHOULDER COMPARISON: None available. TECHNIQUE: Multiplanar sequences of the shoulder joint are submitted. Marked AC joint hypertrophy. Fluid in the acromioclavicular ligament with osteophytes and hypertrophi c bone formation. Encroachment and impingement upon the distal supraspinatus muscle. There is an kirit tional 5 mm osteophyte along the undersurface of the distal acromion. There is mild narrowing of the acromiohumeral distance and AC joint impingement upon the supraspinatus muscle and tendon. Moderate a mount of fluid in the subacromial and subdeltoid bursa. Insertion site tear of the anterior most supraspinatus tendon. There is no retraction of the tendon. No muscle atrophy or edema. Subscapularis tendon is intact. Loculated fluid following the anterior sue bscapularis muscle and tendon. Continuous with the subacromial and subdeltoid fluid. Subchondral cystic changes in the humeral head at the greater tuberosity. There is mild narrowing of the glenohumeral joint. A few cystic changes in the glenoid. There is a small amount of increased sig nal inserted into the base of the anterior labrum. This is not a full-thickness tear. Biceps tendon r emains in normal position. Small cystic nodule is lobulated adjacent to the posterior labrum. This is typically associated with a labral tear. MR/MR shoulder RT wo con* [id number] IMPRESSION: 1. Small insertion site tear anterior supraspinatus tendon. 2. Moderate to severe AC joint arthropathy with encroachment upon the anterior supraspinatus muscle. 3. Moderate amount of fluid in the subacromial and subdeltoid bursa with fluid extending along the subscapularis muscle and tendon. 4. Partial tear anterior labrum. Additional perilabral cyst posteriorly. These are typically associated with a labral tear. 5. Distal inferior 5 mm acromial osteophyte causing mild narrowing of the acro miohumeral distance and impingement.
== END 2019-07-10 14:48 | disposition home or self-care (01) ==
LOC: RADWPI 14:52
PROVIDERS: Family Provider Internal Medicine; PCP Internal Medicine; Visit Provider Internal Medicine
DX: M24.811 Other specific joint derangements of right shoulder, not elsewhere classified (principal); M75.101 Unspecified rotator cuff tear or rupture of right shoulder, not specified as traumatic; M12.811 Other specific arthropathies, not elsewhere classified, right shoulder
CPT/HCPCS: 73221

== ENCOUNTER → 2020-02-26 09:05 | Outpatient (BNVA) | payer MEDICARE, OTHER, SELFPAY | PROVIDERS: Family Provider Internal Medicine; PCP Internal Medicine; Visit Provider Urology | DX: C67.4 Malignant neoplasm of posterior wall of bladder (principal); Z98.890 Other specified postprocedural states; I63.9 Cerebral infarction, unspecified; N52.9 Male erectile dysfunction, unspecified | CPT/HCPCS: 81003 ==

== ENCOUNTER → 2021-02-10 09:49 | Outpatient (BNVA) | payer MEDICARE, OTHER, SELFPAY | PROVIDERS: PCP Internal Medicine; Visit Provider Urology | DX: C67.4 Malignant neoplasm of posterior wall of bladder (principal) | CPT/HCPCS: 81003 ==

== ENCOUNTER 2021-04-20 08:49 | Outpatient (CLI) | payer MEDICARE, OTHER, SELFPAY ==
--- NOTE | 2021-04-20 09:02 | CT_ITS ---
WS: [id number] CT CHEST WITH INTRAVENOUS CONTRAST HISTORY: COUGH/SHORT OF BREATH/POST COVID TECHNIQUE: Contiguous 5 mm axial imaging performed on the thorax. Coronal and sagittal reformats are submitted. All CT scans at [facility] use at least one of these dose optimization techniques: automated exposure control; mA and/or kV adjustment per patient size (includes targeted exams where dose is matched to clinical indication); or iterative reconstruction. CONTRAST: Visipaque 320; 95 mL IV. DLP: 731.76 mGy.cm COMPARISON: Chest radiograph 04/19/2021. Lungs and central airway: Mild pulmonary hyperinflation. Changes of emphysema. No pulmonary mass or n odule. No groundglass attenuation. Pleura: Normal. No pleural effusion. Heart and pericardium: Normal size heart. Moderate calcified coronary arteries. Mediastinum and carmina: No mediastinum or hilar adenopathy. Vessels: Mildly ectatic atherosclerotic change within the thoracic aorta. No aneurysm. Pulmonary tsering ry size is normal. Normal enhancement centrally. Chest wall and lower neck: No soft tissue masses. Upper abdomen: Small hiatal hernia. There is mild thickening of the central esophagus extending into the distal esophagus. Visualized liver is normal. No adrenal mass. Osseous structures: No destructive process. CT/CT chest w con* [id number] IMPRESSION: 1. Chronic emphysema. 2. No pulmonary mass or nodule. 3. Ectatic atherosclerotic changes within the thoracic aorta. Coronary artery atherosclerosis. 4. Mild esophageal thickening. Correlate for possible esophagitis.
[2021-04-20] MEDS: iodixanol 320 mg/mL 100mL Btl IV (10:04)
== END 2021-04-20 08:50 | disposition home or self-care (01) ==
LOC: RAD 08:55
PROVIDERS: PCP Internal Medicine; Visit Provider Nurse Practitioner
DX: R05.9 Cough, unspecified (principal); R06.02 Shortness of breath; Z86.16 Personal history of COVID-19; J43.9 Emphysema, unspecified
CPT/HCPCS: 71260

== ENCOUNTER 2021-07-05 20:00 | Outpatient (CLI) | payer MEDICARE, OTHER, SELFPAY | END 2021-07-05 20:01 | disposition home or self-care (01) | LOC: SLEEP 07-06 07:59 | PROVIDERS: PCP Internal Medicine; Visit Provider Internal Medicine | DX: G47.10 Hypersomnia, unspecified (principal); R06.83 Snoring; G47.33 Obstructive sleep apnea (adult) (pediatric) | CPT/HCPCS: 95810 ==

== ENCOUNTER 2021-08-25 20:00 | Outpatient (CLI) | payer MEDICARE, OTHER, SELFPAY | END 2021-08-25 20:01 | disposition home or self-care (01) | LOC: SLEEP 08-26 08:37 | PROVIDERS: PCP Internal Medicine; Visit Provider Internal Medicine | DX: G47.33 Obstructive sleep apnea (adult) (pediatric) (principal) | CPT/HCPCS: 95811 ==

== ENCOUNTER → 2022-02-15 09:33 | Outpatient (BNVA) | payer MEDICARE, OTHER, SELFPAY | PROVIDERS: PCP Internal Medicine; Visit Provider Urology | DX: C67.4 Malignant neoplasm of posterior wall of bladder (principal) | CPT/HCPCS: 52000; 81003; 88112 ==

== ENCOUNTER 2022-11-21 08:07 | Outpatient (CLI) | payer MEDICARE, OTHER, SELFPAY ==
--- NOTE | 2022-11-21 08:00 | USCV_ITS ---
ShankarNathan pemberton Age: 77 Gender: M : 1945 Exam Date: 11/21/2022 08:45 Ordering Phys: Bethel Rodriguez DO Technologist: Exam Location: [facility] Indication: murmur BP: 170 / 80 HR: 46 Rhythm: Sinus Technical Quality: Adequate MEASUREMENTS (Male / Female) Normal Values 2D ECHO LV Diastolic Diameter PLAX 5.2 cm 4.2 - 5.9 / 3.9 - 5.3 cm LV Systolic Diameter PLAX 3.1 cm IVS Diastolic Thickness 1.2 cm 0.6 - 1.0 / 0.6 - 0.9 cm IVS Systolic Thickness 1.5 cm LVPW Diastolic Thickness 1.3 cm 0.6 - 1.0 / 0.6 - 0.9 cm LVPW Systolic Thickness 1.5 cm LVOT Diameter 2.0 cm LV Ejection Fraction 2D Teich 71.8 % LA Diameter 3.5 cm IVC Diameter 1.3 cm M-MODE Aortic Annulus Diameter 4.0 cm LA Ao Ratio MM 0.9 MV E Point Septal Separation 0.7 cm DOPPLER AV Peak Velocity 149.0 cm/s LVOT Peak Velocity 99.0 cm/s AV Area Cont Eq vti 2.4 cm squared AV Area Cont Eq pk 2.1 cm squared MV Area PHT 5.0 cm squared Mitral E to A Ratio 2.3 MV E' Velocity 47.5 cm/s Mitral E to MV E' Ratio 7.3 Mitral E to LV E' Lateral Ratio 7.3 Mitral E to LV E' Septal Ratio 7.4 TR Peak Velocity 282.7 cm/s TR Peak Gradient 32.0 mmHg TV Peak E Velocity 66.0 cm/s Right Atrial Pressure 3.0 mmHg Pulmonary Artery Systolic Pressu 35.0 mmHg RV Acceleration Time 0.2 s FINDINGS Left Ventricle Left ventricle is normal size. LV systolic function normal with EF 55 to 60%. No regional wall motion abnormalities are seen. Right Ventricle Normal size and function Right Atrium Normal size Left Atrium Normal size Mitral Valve Mild mitral annular calcification is seen. Mild mitral regurgitation Aortic Valve Structurally wendy aortic valve. No significant aortic stenosis. Mild aortic regurgitation. Tricuspid Valve Mild tricuspid regurgitation. RVSP is 40-45 mmHg. This is consistent with mild pulmonary hypertension Pulmonic Valve Not well-visualized Pericardium Normal Aorta Normal in size IVC Appears to be normal CONCLUSIONS LV systolic function is normal with EF of 55 to 60%. Mild mitral regurgitation. Mild aortic regurgitation. Mild tricuspid regurgitation. Mild pulmonary hypertension No comparison studies are available Moshe Palacios MD (Electronically Signed) Final Date: 26 November 2022 21:26 S
[2022-11-21 09:24] VITALS: BMI 27.0
--- NOTE | 2022-11-21 09:27 | ECG_ITS ---
[facility] Test Date: 2022-11-21 Pat Name: Nathan Chaparro Department: Room: Gender: Male Table Setter: : 1945 Requested By: Bethel William Order Number: [id number] Celine MD: Moshe Palacios M.D. Interpretive Statements NAME OF STUDY: LEXISCAN SESTAMIBI STRESS TEST INDICATION: [Dyspnea on Exertion] Procedure: At the baseline, the blood pressure was 137/86 mmHg with a heart rate of 54 bpm. The electrocardiogram showed normal sinus rhythm, normal axis with normal ST and T's. The Lexiscan was infused over a period of 20 seconds. A total of 0.4 mg of Lexiscan was infused. The stress phase was continued for a total of 5 minutes. Heart rate was at the end of stress phase was 76 bpm and a blood pressure of 118/77 mmHg. The EKG at the peak infusion revealed normal sinus rhythm with no significant ST-T wave changes. Sestamibi was injected 20 seconds after the Lexiscan infusion. Blood pressure at the end of recovery phase was 115/78 mmHg with a heart rate of 75 bpm. Conclusion: 1. Normal EKG response to Lexiscan infusion 2. No Lexiscan induced chest pain or cardiac arrhythmia. 3. Normal blood pressure and heart rate response. 4. Sestamibi/sestamibi perfusion scan pending; see separate report. Electronically Signed On 12-01-2022 14:17:47 CDT by Moshe Palacios M.D. [email or web address]
--- NOTE | 2022-11-21 09:28 | NMCV_ITS ---
NM libia perf SPECT r/s* [id number] Nathan Chaparro Age: 77 Gender: M : 1945 Exam Date: 11/21/2022 09:28 Ordering Phys: Bethel Rodriguez DO Technologist: ALESHA Mayo Exam Location: [facility] Indications: SHORTNESS OF BREATH STRESS TEST Please see separate stress test report in [facility] for full findings IMAGE PROTOCOL Rest/Stress 1 Lexiscan Day Radiopharmaceutical Dose (mCi) Administration Site Administered by Rest: Tc-99m 10.9 IV ALESHA Mcpherson Sestamibi Stress:Tc-99m 32.7 IV ALESHA Mayo Sestamilópez Rest: 21-Nov-2022 60 Discovery 630 Stress: 21-Nov-2022 30 Discovery 630 0.4mg Lexiscan. Images obtained in supine and prone position. SPECT RESULTS Technical Quality: Excellent Raw Data Analysis: Normal Image Corrections: No attenuation or motion correction applied Summed Stress Score: 1 Summed Rest Score: 0 Summed Difference Score: 1 PERFUSION FINDINGS SPECT images demonstrate homogeneous tracer distribution throughout the myocardium. FUNCTIONAL RESULTS (calculated via Gated SPECT) Stress Image LV EF (%): 72 Stress EDV (mL):97 TID: 1.09 Stress ESV (mL):27 FUNCTIONAL FINDINGS: There is normal left ventricular systolic function. IMPRESSIONS 1. Normal myocardial perfusion imaging with no evidence of ischemia 2. LV systolic function is normal Moshe Palacios MD (Electronically Signed) Final Date: 22 November 2022 10:06 S
[2022-11-21] MEDS: regadenoson 0.4 Mg/5 ml Syringe IVP (11:08)
[2022-11-21 11:25] VITALS: BP 114/56; PULSE 72
== END 2022-11-21 08:08 | disposition home or self-care (01) ==
PROVIDERS: PCP Internal Medicine; Visit Provider Internal Medicine
DX: I08.3 Combined rheumatic disorders of mitral, aortic and tricuspid valves (principal); R06.9 Unspecified abnormalities of breathing; R01.1 Cardiac murmur, unspecified
CPT/HCPCS: 36415; 78452; 93017; 93306; 96374; A9500; J2785

== ENCOUNTER → 2022-11-29 12:54 | Outpatient (BNVA) | payer MEDICARE, OTHER, SELFPAY | PROVIDERS: PCP Internal Medicine; Visit Provider Internal Medicine | DX: R06.09 Other forms of dyspnea (principal); R06.02 Shortness of breath; Z87.891 Personal history of nicotine dependence; Z86.73 Personal history of transient ischemic attack (TIA), and cerebral infarction without residual deficits | CPT/HCPCS: 36415; 83880; 93005; 99204 ==

== ENCOUNTER → 2023-03-16 13:16 | Outpatient (BNVA) | payer MEDICARE, OTHER, SELFPAY | PROVIDERS: PCP Internal Medicine; Referring Provider Internal Medicine; Visit Provider Internal Medicine Pulmonary Disease | DX: J43.9 Emphysema, unspecified (principal); Z12.2 Encounter for screening for malignant neoplasm of respiratory organs; I27.20 Pulmonary hypertension, unspecified; G47.33 Obstructive sleep apnea (adult) (pediatric); Z91.198 Patient's noncompliance with other medical treatment and regimen for other reason; R06.02 Shortness of breath | CPT/HCPCS: 36415; 82785; 85025; 86003; 99204 ==

== ENCOUNTER 2023-04-04 10:00 | Outpatient (CLI) | payer MEDICARE, OTHER, SELFPAY | END 2023-04-04 10:01 | disposition home or self-care (01) | LOC: SLEEP 04-05 10:37 | PROVIDERS: PCP Internal Medicine; Visit Provider Internal Medicine Pulmonary Disease | DX: G47.33 Obstructive sleep apnea (adult) (pediatric) (principal) | CPT/HCPCS: 94762 ==

== ENCOUNTER 2023-04-06 08:59 | Outpatient (CLI) | payer MEDICARE, OTHER, SELFPAY ==
[2023-04-06 09:20] VITALS: PULSE 58; RESP 18; O2SAT 97
[2023-04-06] MEDS: albuterol 2.5 mg/3 mL Neb INHALATION (09:20)
[2023-04-06 11:12] VITALS: PULSE 61
== END 2023-04-06 09:00 | disposition home or self-care (01) ==
LOC: RT 09:00
PROVIDERS: PCP Internal Medicine; Visit Provider Internal Medicine Pulmonary Disease
DX: R06.02 Shortness of breath (principal); Z87.891 Personal history of nicotine dependence; R94.2 Abnormal results of pulmonary function studies
CPT/HCPCS: 94060; 94618; 94729; J7613

== ENCOUNTER → 2023-05-11 12:42 | Outpatient (BNVA) | payer MEDICARE, OTHER, SELFPAY | PROVIDERS: PCP Internal Medicine; Visit Provider Internal Medicine Pulmonary Disease | DX: J44.89 Other specified chronic obstructive pulmonary disease (principal); R06.09 Other forms of dyspnea; J43.2 Centrilobular emphysema; Z12.2 Encounter for screening for malignant neoplasm of respiratory organs; I27.20 Pulmonary hypertension, unspecified; G47.33 Obstructive sleep apnea (adult) (pediatric); Z99.89 Dependence on other enabling machines and devices | CPT/HCPCS: 99214 ==

== ENCOUNTER → 2023-11-28 13:51 | Outpatient (BNVA) | payer MEDICARE, SELFPAY | PROVIDERS: PCP Internal Medicine; Visit Provider Internal Medicine | DX: R06.09 Other forms of dyspnea (principal); F17.200 Nicotine dependence, unspecified, uncomplicated | CPT/HCPCS: 99213 ==

== ENCOUNTER 2024-03-25 15:37 | Outpatient (CLI) | payer MEDICARE, OTHER, SELFPAY ==
--- NOTE | 2024-03-25 15:42 | MR_ITS ---
WS: [id number] MRI LUMBAR SPINE WITH CONTRAST TECHNIQUE: Sagittal T1, T2 and STIR imaging. Axial T1 and T2 imaging. Post gadolinium imaging was obt ained. CLINICAL INFORMATION: CHRONIC PAIN COMPARISON: MRI 2020 FINDINGS: Mild lumbar curve. Prior postoperative changes ACDF L5-S1. Disc bulging worse at L3-4. This appears p rogressed compared to previous. L1-L2: Mild facet arthropathy. Spinal canal and foramen are patent. L2-L3: Mild annular bulging. Progressive impingement RIGHT subarticular recess. Mild RIGHT greater th an LEFT foraminal narrowing. Mild facet arthropathy. L3-L4: RIGHT paracentral and subarticular disc protrusion. Impingement RIGHT subarticular recess and traversing RIGHT L4 nerve root. Mild to moderate central canal stenosis. This appears progressed comp ared to previous. Moderate LEFT and mild RIGHT foraminal narrowing with bilateral foraminal protrusio ns. Mild facet arthropathy. L4-L5: Mild annular bulging. Slight impingement on traversing LEFT greater than RIGHT L5 nerve roots. Small bilateral foraminal protrusions with moderate LEFT and mild RIGHT foraminal narrowing. Moderat e facet arthropathy. L5-S1: Prior postoperative changes ACDF. Mild facet arthropathy. Foramen are patent. Mild facet arthr opathy. Visualized pelvic bony structures: Normal. Paravertebral soft tissues: Normal. MR/MR lumbar spine wo/w con [id number] IMPRESSION: 1. Mild lumbar curve. No acute compression. 2. RIGHT paracentral and subarticular protrusion L3-4 with impingement on the RIGHT subarticular recess and mild to moderate central canal stenosis. This herman ears progressed compared to previous. Moderate LEFT foraminal narrowing at this level. 3. Mild central canal stenosis L4-5 with impingement on the LEFT greater than RIGHT traversing L5 nerve roots. Moderate LEFT and mild RIGHT foraminal narrowi ng. 4. Progressed disc bulging L2-3 with impingement on the RIGHT subarticular rec ess and traversing RIGHT L3 nerve root. Mild RIGHT foraminal narrowing at this level. 5. Spinal canal and foramen are patent at L5-S1 fusion level.
[2024-03-25] MEDS: gadobenate dimeglumine 20 mL vial 17 ML IV (16:28)
== END 2024-03-25 15:38 | disposition home or self-care (01) ==
LOC: RAD 15:38
PROVIDERS: PCP Internal Medicine; Visit Provider Nurse Practitioner Family
DX: G89.4 Chronic pain syndrome (principal); M43.8X6 Other specified deforming dorsopathies, lumbar region; M51.26 Other intervertebral disc displacement, lumbar region; M48.061 Spinal stenosis, lumbar region without neurogenic claudication; M51.369 Other intervertebral disc degeneration, lumbar region without mention of lumbar back pain or lower extremity pain; Z98.1 Arthrodesis status; M47.896 Other spondylosis, lumbar region; M47.897 Other spondylosis, lumbosacral region
CPT/HCPCS: 72158

== ENCOUNTER → 2024-11-26 13:12 | Outpatient (BNVA) | payer MEDICARE, OTHER, SELFPAY | PROVIDERS: PCP Family Medicine; Visit Provider Internal Medicine | DX: R06.09 Other forms of dyspnea (principal) | CPT/HCPCS: 99213 ==

== ENCOUNTER → 2024-11-29 08:19 | Outpatient (BNVA) | payer MEDICARE, OTHER, SELFPAY | PROVIDERS: PCP Family Medicine; Referring Provider Internal Medicine; Visit Provider Internal Medicine | DX: J43.9 Emphysema, unspecified (principal); J44.89 Other specified chronic obstructive pulmonary disease; I27.20 Pulmonary hypertension, unspecified; G47.33 Obstructive sleep apnea (adult) (pediatric); Z12.2 Encounter for screening for malignant neoplasm of respiratory organs; F17.220 Nicotine dependence, chewing tobacco, uncomplicated; Z86.73 Personal history of transient ischemic attack (TIA), and cerebral infarction without residual deficits; J44.9 Chronic obstructive pulmonary disease, unspecified | CPT/HCPCS: 36415; 85025; 99214 ==

== ENCOUNTER → 2024-12-09 08:55 | Outpatient (BNVA) | payer MEDICARE, OTHER, SELFPAY | PROVIDERS: PCP Family Medicine; Visit Provider Internal Medicine | DX: J43.9 Emphysema, unspecified (principal); Z12.2 Encounter for screening for malignant neoplasm of respiratory organs; I27.20 Pulmonary hypertension, unspecified; G47.33 Obstructive sleep apnea (adult) (pediatric); J44.89 Other specified chronic obstructive pulmonary disease; F17.220 Nicotine dependence, chewing tobacco, uncomplicated | CPT/HCPCS: 99214; Q3014 ==

== ENCOUNTER 2024-12-18 08:57 | Outpatient (CLI) | payer MEDICARE, OTHER, SELFPAY ==
--- NOTE | 2024-12-18 09:15 | USCV_ITS ---
Nathan Chaparro Age: 79 Gender: M : 1945 Exam Date: 12/18/2024 09:38 Ordering Phys: Moshe Palacios M.D ([email or web address]) Technologist: [place] [facility] [place]: ef BP: 130 / 70 HR: 56 Rhythm: Sinus Technical Quality: Adequate MEASUREMENTS (Male / Female) Normal Values 2D ECHO LV Diastolic Diameter PLAX 4.3 cm 4.2 - 5.9 / 3.9 - 5.3 cm IVS Diastolic Thickness 1.5 cm 0.6 - 1.0 / 0.6 - 0.9 cm IVS Systolic Thickness 1.7 cm LVPW Diastolic Thickness 1.3 cm 0.6 - 1.0 / 0.6 - 0.9 cm LVPW Systolic Thickness 1.8 cm LVOT Diameter 2.0 cm LV Ejection Fraction 2D Teich 71.2 % LV Ejection Fraction MOD 4C 68.2 % LV Ejection Fraction MOD 2C 72.0 % LV Ejection Fraction 2C AL 73.0 % LA Diameter 3.9 cm RA Systolic Volume 4C AL 53.6 ml RA Systolic Volume 4C MOD 51.3 ml Aorta at Sinotubular Diameter 3.4 cm IVC Diameter 1.7 cm M-MODE LA Ao Ratio MM 1.3 AV Cusp Separation MM 2.0 cm DOPPLER AV Peak Velocity 197.0 cm/s LVOT Peak Velocity 116.0 cm/s AV Area Cont Eq vti 2.5 cm squared AV Area Cont Eq pk 1.9 cm squared MV Area PHT 3.7 cm squared Mitral E to A Ratio 1.7 TV Peak Velocity 293.0 cm/s TR Peak Velocity 305.0 cm/s TR Peak Gradient 37.2 mmHg TV Peak E Velocity 95.0 cm/s FINDINGS Left Ventricle Normal left ventricular size, systolic function and wall thickness, with no regional wall motion abnormalities. Left ventricular ejection fraction is estimated at 60 %. Grade II/IV diastolic dysfunction, moderately elevated filling pressures. Right Ventricle Normal right ventricular size and systolic function. Right Atrium Normal right atrial size. Left Atrium Normal left atrial size. IA Septum Normal appearance of the interatrial septum. Mitral Valve Mildly thickened mitral valve. No mitral valve stenosis. Mild mitral valve regurgitation. Aortic Valve Moderate aortic valve calcification. No aortic valve stenosis. Trace aortic valve regurgitation. Tricuspid Valve Trace tricuspid valve regurgitation. Pulmonic Valve Normal pulmonic valve structure. No pulmonic valve stenosis or regurgitation. Pericardium No pericardial effusion. Aorta Normal diameter of the aortic root and ascending thoracic aorta. IVC Normal IVC diameter. CONCLUSIONS Normal left ventricular size, systolic function and wall thickness, with no regional wall motion abnormalities. Left ventricular ejection fraction is estimated at 60 %. Grade II/IV diastolic dysfunction, moderately elevated filling pressures. Mildly thickened mitral valve. No mitral valve stenosis. Mild mitral valve regurgitation. Moderate aortic valve calcification. No aortic valve stenosis. Trace aortic valve regurgitation. There is no pericardial effusion. Right atrial pressure is around 5 mm of mercury. Jake Alvarez MD (Electronically Signed) Final Date: 22 December 2024 21:35 S
== END 2024-12-18 08:58 | disposition home or self-care (01) ==
LOC: RAD 08:58
PROVIDERS: PCP Family Medicine; Visit Provider Internal Medicine
DX: R06.09 Other forms of dyspnea (principal); R07.9 Chest pain, unspecified; I34.0 Nonrheumatic mitral (valve) insufficiency; R93.0 Abnormal findings on diagnostic imaging of skull and head, not elsewhere classified; I36.1 Nonrheumatic tricuspid (valve) insufficiency; I35.8 Other nonrheumatic aortic valve disorders
CPT/HCPCS: 93306

== ENCOUNTER → 2025-01-10 08:55 | Outpatient (BNVA) | payer MEDICARE, OTHER, SELFPAY | PROVIDERS: PCP Family Medicine; Visit Provider Internal Medicine | DX: J43.9 Emphysema, unspecified (principal); Z12.2 Encounter for screening for malignant neoplasm of respiratory organs; I27.20 Pulmonary hypertension, unspecified; G47.33 Obstructive sleep apnea (adult) (pediatric); Z99.89 Dependence on other enabling machines and devices; Z91.198 Patient's noncompliance with other medical treatment and regimen for other reason; J44.89 Other specified chronic obstructive pulmonary disease; J30.1 Allergic rhinitis due to pollen; F17.220 Nicotine dependence, chewing tobacco, uncomplicated | CPT/HCPCS: 99214; Q3014 ==

== ENCOUNTER → 2025-02-07 09:05 | Outpatient (BNVA) | payer MEDICARE, OTHER, SELFPAY | PROVIDERS: PCP Family Medicine; Visit Provider Internal Medicine | DX: J43.9 Emphysema, unspecified (principal); Z12.2 Encounter for screening for malignant neoplasm of respiratory organs; I27.20 Pulmonary hypertension, unspecified; G47.33 Obstructive sleep apnea (adult) (pediatric); Z99.89 Dependence on other enabling machines and devices; Z91.199 Patient's noncompliance with other medical treatment and regimen due to unspecified reason; J44.89 Other specified chronic obstructive pulmonary disease; J30.1 Allergic rhinitis due to pollen; Z87.891 Personal history of nicotine dependence; J44.9 Chronic obstructive pulmonary disease, unspecified; R91.8 Other nonspecific abnormal finding of lung field | CPT/HCPCS: 71046; 99214; Q3014 ==